=== PATIENT | male | born 1945 | race African-American/Black ===

== ENCOUNTER 2020-03-26 12:18 | Inpatient (IN) | payer MEDICARE, OTHER ==
[~2020-03-26] VITALS: Ht 170.2 cm; Wt 66.2 kg
[2020-03-26 13:13] LABS: EOSINOPHILS % 0.3 % (0.0-5.0); HEMATOCRIT. 32.6 % (42.0-52.0); HEMOGLOBIN. 11.1 g/dL (14.0-18.0); LYMPHOCYTES % 15.7 % (20.0-50.0); MEAN CORPUSCULAR HEMOGLOBIN 31.9 pg (28.0-32.0); MEAN CORPUSCULAR VOLUME 93.6 fL (80.0-94.0); MEAN PLATELET VOLUME 6.8 fl (7.4-10.4); MONOCYTES % 14.4 % (2.0-8.0); NEUTROPHILS % 68.6 % (40.0-76.0); PLATELET 259 x1000/uL (130-400); RED BLOOD CELL COUNT 3.49 mill/uL (4.7-6.1); RED CELL DISTRIBUTION WIDTH 15.3 % (11.6-14.6)
[2020-03-26 13:17] LABS: CHLORIDE 102 mEq/L (98-107)
[2020-03-26 13:21] LABS: ETHANOL BLOOD 254 mg/dL
[2020-03-26 14:21] LABS: CLARITY URINE CLOUDY (CLEAR); COLOR URINE DK YELLOW (YELLOW); KETONES URINE 1+ (NEGATIVE); LEUKOCYTE ESTERASE URINE NEGATIVE (NEGATIVE); NITRITE URINE NEGATIVE (NEGATIVE); OCCULT BLOOD URINE TRACE (NEGATIVE); PH URINE 5.5 (4.5-8.0); PROTEIN URINE 1+ (NEGATIVE); SPECIFIC GRAVITY URINE 1.025 (1.005-1.030)
[2020-03-26 14:34] LABS: *AMPHETAMINES SCREEN URINE NEGATIVE (NEGATIVE); *BARBITURATES SCREEN URINE NEGATIVE (NEGATIVE); *BENZODIAZEPINES SCREEN URINE NEGATIVE (NEGATIVE); *COCAINE SCREEN URINE NEGATIVE (NEGATIVE)
[2020-03-26 14:35] LABS: CANNABINOID URINE SCREEN NEGATIVE (NEGATIVE); METHADONE URINE SCREEN NEGATIVE (NEGATIVE); OPIATES URINE SCREEN NEGATIVE (NEGATIVE); PHENCYCLIDINE URINE SCREEN NEGATIVE (NEGATIVE)
[2020-03-26] MEDS ORDERED: MORPHINE SULFATE 4 MG/ML CPJ (NOT FOR IM USE) IV STA (15:46)
[2020-03-26] MEDS ORDERED: ONDANSETRON HCL 4MG/2ML INJ IV STA (15:46)
[2020-03-26] MEDS ORDERED: ASPIRIN 81MG TABLET PO ONE (16:00)
[2020-03-26 16:59] VITALS: BP 135/92
[2020-03-26] MEDS ORDERED: GUAIFENESIN 200MG/10ML SUGAR FREE UDC PO PRN (18:15)
[2020-03-26] MEDS ORDERED: ACETAMINOPHEN 325MG TABLET PO PRN ×2 (18:15)
[2020-03-26] MEDS ORDERED: CLONIDINE 0.1MG TABLET PO PRN (18:15)
[2020-03-26] MEDS ORDERED: DIPHENHYDRAMINE 50MG/ML VIAL IV PRN (18:15)
[2020-03-26] MEDS ORDERED: MAGNESIUM/ALUMINUM HYDROXIDE/SIMETHICONE 30ML UDC PO PRN (18:15)
[2020-03-26] MEDS ORDERED: ONDANSETRON HCL 4MG/2ML INJ IV PRN (18:15)
[2020-03-26] MEDS ORDERED: MVI, ADULT NO.1 10 ML, FOLIC ACID 1 MG, THIAMINE HCL 100 MG in SODIUM CHLORIDE 0.9% 1,0... IV SCH ×4 (19:30)
[2020-03-26 20:06] VITALS: BP 135/79
[2020-03-26] MEDS: KETOROLAC 30MG/ML VIAL IV PRN (20:52)
[2020-03-26] MEDS: FAMOTIDINE 20MG TABLET PO SCH (21:44)
[2020-03-26] MEDS: ENOXAPARIN 40MG/0.4ML SYR SUBCUT SCH (21:45)
[2020-03-27 00:12] VITALS: BP 139/87
[2020-03-27] MEDS: KETOROLAC 30MG/ML VIAL IV PRN ×3 (02:24→21:45)
[2020-03-27 04:00] VITALS: BP 151/79
[2020-03-27 12:00] VITALS: BP 159/86
[2020-03-27 16:00] VITALS: BP 155/88
[2020-03-27] MEDS ORDERED: CHLORDIAZEPOXIDE 25MG CAPSULE PO PRN (16:30)
[2020-03-27] MEDS ORDERED: IPRATROPIUM/ALBUTEROL 0.5-3(2.5)MG/3ML NEB HHN PRN (16:30)
[2020-03-27 18:59] LABS: HEPATITIS B SURFACE ANTIGEN NEGATIVE
[2020-03-27 19:29] LABS: HEPATITIS A AB IGM NEGATIVE (NEGATIVE)
[2020-03-27 20:00] VITALS: BP 142/95
[2020-03-27] MEDS: GUAIFENESIN 600MG ER TABLET PO SCH (21:45)
[2020-03-27] MEDS: ENOXAPARIN 40MG/0.4ML SYR SUBCUT SCH (21:45)
[2020-03-27] MEDS: FAMOTIDINE 20MG TABLET PO SCH (21:45)
[2020-03-27] MEDS: IPRATROPIUM/ALBUTEROL 0.5-3(2.5)MG/3ML NEB HHN SCH (22:37)
[2020-03-28] VITALS: BP 127/73
[2020-03-28 04:00] VITALS: BP 129/80
[2020-03-28] MEDS: IPRATROPIUM/ALBUTEROL 0.5-3(2.5)MG/3ML NEB HHN SCH ×4 (04:33→21:57)
[2020-03-28 08:00] VITALS: BP 132/83
[2020-03-28] MEDS: MULTIVITAMINS,THER W-MINERALS TABLET PO SCH (08:16)
[2020-03-28] MEDS: THIAMINE HCL 100MG TABLET PO SCH (08:16)
[2020-03-28] MEDS: GUAIFENESIN 600MG ER TABLET PO SCH ×2 (08:16→21:17)
[2020-03-28] MEDS: FOLIC ACID 1MG TABLET PO SCH (08:16)
[2020-03-28 12:00] VITALS: BP 127/69
[2020-03-28] MEDS: KETOROLAC 30MG/ML VIAL IV PRN (14:25)
[2020-03-28 16:00] VITALS: BP 110/73
[2020-03-28 20:00] VITALS: BP 144/68
[2020-03-28] MEDS: ENOXAPARIN 40MG/0.4ML SYR SUBCUT SCH (21:17)
[2020-03-28] MEDS: FAMOTIDINE 20MG TABLET PO SCH (21:17)
[2020-03-29] VITALS: BP 127/79
[2020-03-29] MEDS: IPRATROPIUM/ALBUTEROL 0.5-3(2.5)MG/3ML NEB HHN SCH ×4 (03:50→22:08)
[2020-03-29 04:00] VITALS: BP 118/72
[2020-03-29 08:00] VITALS: BP 121/70
[2020-03-29] MEDS: MULTIVITAMINS,THER W-MINERALS TABLET PO SCH (08:39)
[2020-03-29] MEDS: GUAIFENESIN 600MG ER TABLET PO SCH ×2 (08:39→20:37)
[2020-03-29] MEDS: THIAMINE HCL 100MG TABLET PO SCH (08:39)
[2020-03-29] MEDS: FOLIC ACID 1MG TABLET PO SCH (08:39)
[2020-03-29 12:00] VITALS: BP 130/69
[2020-03-29 16:00] VITALS: BP 115/68
[2020-03-29 20:00] VITALS: BP 121/80
[2020-03-29] MEDS: FAMOTIDINE 20MG TABLET PO SCH (20:37)
[2020-03-30] VITALS: BP 129/76
[2020-03-30] MEDS ORDERED: DEXT 5%/0.45% NACL 1000ML 1,000 ML IV SCH
[2020-03-30] MEDS: IPRATROPIUM/ALBUTEROL 0.5-3(2.5)MG/3ML NEB HHN SCH ×3 (03:09→15:13)
[2020-03-30 04:00] VITALS: BP 121/80
[2020-03-30 08:00] VITALS: BP 117/82
[2020-03-30 09:10] LABS: HIV SCREEN 4G Non Reactive (Non Reactive)
[2020-03-30] MEDS: THIAMINE HCL 100MG TABLET PO SCH (09:15)
[2020-03-30] MEDS: MULTIVITAMINS,THER W-MINERALS TABLET PO SCH (09:15)
[2020-03-30] MEDS: GUAIFENESIN 600MG ER TABLET PO SCH ×2 (09:15→21:38)
[2020-03-30] MEDS: FOLIC ACID 1MG TABLET PO SCH (09:15)
[2020-03-30 10:53] LABS: INR 0.9; PARTIAL THROMBOPLASTIN TIME 26.7 sec (23.4-31.0)
[2020-03-30 12:00] VITALS: BP 120/80
[2020-03-30 16:00] VITALS: BP 118/74
[2020-03-30 20:00] VITALS: BP 102/68
[2020-03-30] MEDS: FAMOTIDINE 20MG TABLET PO SCH (21:38)
[2020-03-31] VITALS: BP 122/80
[2020-03-31] MEDS: IPRATROPIUM/ALBUTEROL 0.5-3(2.5)MG/3ML NEB HHN SCH ×4 (02:45→20:20)
[2020-03-31 04:00] VITALS: BP 132/76
[2020-03-31 08:00] VITALS: BP 134/78
[2020-03-31] MEDS: THIAMINE HCL 100MG TABLET PO SCH (08:20)
[2020-03-31] MEDS: GUAIFENESIN 600MG ER TABLET PO SCH ×2 (08:20→22:56)
[2020-03-31] MEDS: MULTIVITAMINS,THER W-MINERALS TABLET PO SCH (08:20)
[2020-03-31] MEDS: FOLIC ACID 1MG TABLET PO SCH (08:21)
[2020-03-31 12:00] VITALS: BP 129/75
[2020-03-31] MEDS: NICOTINE 14MG PATCH TD SCH (14:06)
[2020-03-31 16:00] VITALS: BP 131/76
[2020-03-31 20:00] VITALS: BP 131/77
[2020-03-31] MEDS: FAMOTIDINE 20MG TABLET PO SCH (22:56)
[2020-04-01] VITALS (17 sets, daily range): BP systolic 120–148; BP diastolic 75–90
[2020-04-01] MEDS: IPRATROPIUM/ALBUTEROL 0.5-3(2.5)MG/3ML NEB HHN SCH (01:35)
[2020-04-01] MEDS ORDERED: SODIUM BICARBONATE 4% (2.4MEQ) 5ML VIAL IV ONE (07:53)
[2020-04-01] MEDS ORDERED: LIDOCAINE HCL 1% 20ML VIAL (Pyxis) INJ ONE (07:53)
[2020-04-01] MEDS ORDERED: FENTANYL CITRATE/PF 50MCG/ML 2ML VIAL ONE (07:53)
[2020-04-01] MEDS ORDERED: FENTANYL CITRATE/PF 50MCG/ML 2ML VIAL IV SCH (09:00)
[2020-04-01] MEDS: MULTIVITAMINS,THER W-MINERALS TABLET PO SCH (09:36)
[2020-04-01] MEDS: GUAIFENESIN 600MG ER TABLET PO SCH (09:36)
[2020-04-01] MEDS: THIAMINE HCL 100MG TABLET PO SCH (09:36)
[2020-04-01] MEDS: FOLIC ACID 1MG TABLET PO SCH (09:37)
[2020-04-01] MEDS: NICOTINE 14MG PATCH TD SCH (09:40)
== END 2020-04-01 16:05 | disposition home or self-care (01) | DRG 180 ==
LOC: ER 12:18 → EDBD 15:20 → MICUSO 15:20 → EDBEDREQ 15:22 → 6WST 16:41 → 6EST 04-01 04:47
PROVIDERS: ADMIT Internal Medicine; ATTEND Internal Medicine
PROC: 0BBG3ZX Excision of Left Upper Lung Lobe, Percutaneous Approach, Diagnostic (ICD-10-PCS; principal; 2020-04-01)
DX: C34.12 Malignant neoplasm of upper lobe, left bronchus or lung (principal); J96.00 Acute respiratory failure, unspecified whether with hypoxia or hypercapnia; F10.10 Alcohol abuse, uncomplicated; D64.9 Anemia, unspecified; F17.210 Nicotine dependence, cigarettes, uncomplicated; N28.1 Cyst of kidney, acquired; J43.9 Emphysema, unspecified; Y90.9 Presence of alcohol in blood, level not specified; D72.810 Lymphocytopenia; K21.9 Gastro-esophageal reflux disease without esophagitis
CPT/HCPCS: 32405; 36415; 71045; 71260; 77012; 80053; 80061; 80305; 80320; 81003; 82378; 83880; 84443; 84484; 85025; 86705; 86709; 86803; 87340; 87389; 88305; 93005; 93970; 99152; 99153; 99291; J1650; J1885; J2270; J2405; J3010; J3411; J3490; J7030; G0480; G0500; U0003-CS